=== PATIENT | female | born 1950 | race Caucasian/White ===

== ENCOUNTER 2024-07-03 11:37 | Emergency (ER) | payer MEDICARE, BC ==
[2024-07-03 12:01] VITALS: BP 148/90; PULSE 79
[2024-07-03] MEDS: HYDROmorphone 0.5 MG/0.5 ML Syringe SUBCUT STA (12:03)
== END 2024-07-03 13:00 | disposition home or self-care (01) ==
LOC: CC.ED 11:37
DX: S63.114A Dislocation of metacarpophalangeal joint of right thumb, initial encounter (principal); I10 Essential (primary) hypertension; Z90.710 Acquired absence of both cervix and uterus; Z88.1 Allergy status to other antibiotic agents; W01.0XXA Fall on same level from slipping, tripping and stumbling without subsequent striking against object, initial encounter
CPT/HCPCS: 26770; 73120-RT; 73130-RT; 96372; 99283-25; J1170